=== PATIENT | male | born 1965 | race Caucasian/White ===

== ENCOUNTER 2024-01-11 11:06 | Emergency (ER) | payer MEDICAID ==
[~2024-01-11] VITALS: Ht 193 cm; Wt 122.7 kg
[~2024-01-11 11:06] MED LIST: ACET-2247 PO; APIX5TAB PO; BISA10SU11 PR; HYDR-4062 PO; MAGN-169 PO; PANT-31 PO; ZOLP-280 PO
[2024-01-11 11:29] VITALS: TEMP 97.9
[2024-01-11 14:03] LABS: BASOPHILS % (AUTO) 0.5 % (0.0-2.0); EOSINOPHILS % (AUTO) 10.7 % (1.0-6.0); HEMATOCRIT 40.5 % (41-53); HEMOGLOBIN 13.6 g/dL (13.5-17.5); LYMPHOCYTES % (AUTO) 15.8 % (22.0-44.0); MEAN CORPUSCULAR HGB CONC 33.7 G/dL (31.0-37.0); MEAN CORPUSCULAR VOLUME 92 fL (80-100); MONOCYTES # (AUTO) 0.8 K/uL (0.1-1.0); MONOCYTES % (AUTO) 6.5 % (2.0-9.0); NEUTROPHILS # (AUTO) 8.3 K/uL (1.8-7.7); NEUTROPHILS % (AUTO) 66.5 % (40.0-70.0); PLATELET COUNT (AUTO) 267 K/uL (150-450); RED CELL DISTRIBUTION WIDTH 12.9 % (11.5-14.5); WHITE BLOOD COUNT (AUTO) 12.4 K/uL (4.5-11.0)
[2024-01-11 14:18] LABS: ANION GAP 12 mmol/L (8-16); CALCIUM, TOTAL 9.3 mg/dL (8.8-10.5); CARBON DIOXIDE 25 mmol/L (22-29); CHLORIDE 101 mmol/L (98-107); CREATININE 0.96 mg/dL (0.60-1.30); GLOMERULAR FILTR. RATE CALC > 60 mL/min (>60); GLUCOSE,RANDOM 185 mg/dL (70-110); POTASSIUM 3.8 mmol/L (3.5-5.1); SODIUM SERUM 138 mmol/L (136-145); UREA NITROGEN, BLOOD 12 mg/dL (7-18)
[2024-01-11] MEDS: SULFAMETHOX/TRIMETH DS 800-160 MG/TABLET PO ONE (14:57)
[2024-01-11] MEDS: ACETAMINOPHEN 500 MG TABLET PO ONE (14:57)
[2024-01-11] MEDS: CEPHALEXIN MONOHYDRATE 500 MG CAPSULE PO ONE (14:57)
[2024-01-11] MEDS ORDERED: ACET-2080 PO (15:03)
[2024-01-11] MEDS ORDERED: CEPH-558 PO (15:03)
[2024-01-11] MEDS ORDERED: SULF-261 PO (15:03)
[2024-01-11 15:14] LABS: APPEARANCE,URINE TURBID (CLEAR); BILIRUBIN,URINE NEGATIVE (NEGATIVE); COLOR,URINE YELLOW (YELLOW); GLUCOSE, URINE (UA) NEGATIVE (NEGATIVE); KETONES,URINE NEGATIVE (NEGATIVE); LEUKOCYTE ESTERASE ,URINE LARGE (NEGATIVE); NITRATE,URINE NEGATIVE (NEGATIVE); OCCULT BLOOD,URINE MODERATE (NEGATIVE); PH,URINE 5.5 (5.0-8.0); PROTEIN,URINE 30-70 mg/dL (NEGATIVE); SPECIFIC GRAVITIY, URINE 1.029 (1.003-1.030)
[2024-01-11 15:15] VITALS: BP 145/98; PULSE 90; RESP 16
[2024-01-11 15:37] LABS: BACTERIA,URINE Moderate /HPF (None Seen); WBC,URINE >100 /HPF (0-5)
[2024-01-11 15:38] LABS: SQUAMOUS EPITHELIAL CELL,UR Rare /LPF (None Seen)
== END 2024-01-11 15:31 | disposition home or self-care (01) ==
LOC: EMS 11:06
DX: N45.1 Epididymitis (principal); I69.30 Unspecified sequelae of cerebral infarction; Z98.890 Other specified postprocedural states; Z87.442 Personal history of urinary calculi
CPT/HCPCS: 76870; 80048; 81001; 85025; 87086; 87186; 99284